=== PATIENT | female | born 1960 | race Caucasian/White ===

== ENCOUNTER 2018-03-09 09:35 | Emergency (ER) | payer BC ==
[~2018-03-09] VITALS: Ht 157.5 cm; Wt 83.2 kg
[~2018-03-09 09:35] MED LIST: PRILOSEC20 MG PO
[2018-03-09 10:11] LABS: HEMOGLOBIN 14.1 G/DL (11.9-15.5); MCH 31.5 PG (29.0-34.0); MCHC 34.4 G/DL (30.0-36.0); MCV 91.5 FL (83-99); PLATELET COUNT 293 K/uL (156-360); RBC DIS.WIDTH-CV 13.8 % (11.8-14.6); RBC DIS.WIDTH-SD 46.5 % (39-53); RED BLOOD COUNT 4.48 M/uL (3.80-5.20); WHITE BLOOD COUNT 11.2 K/uL (4.1-10.2)
[2018-03-09 10:18] LABS: APPEARANCE SL.HAZY ((CLEAR)); BILIRUBIN SMALL; BLOOD NEGATIVE; COLOR AMBER ((YELLOW)); GLUCOSE (STRIP) NEGATIVE; KETONES 5; LEUKOCYTES NEGATIVE; NITRITE NEGATIVE; PROTEIN (STRIP) NEGATIVE; SPECIFIC GRAVITY 1.027 (1.000-1.030)
[2018-03-09 10:22] LABS: CHLORIDE 108 mEq/L (99-109); POTASSIUM 4.4 mEq/L (3.7-5.4); SODIUM 141 mEq/L (136-147)
[2018-03-09 10:22] LABS: BACTERIA RARE /HPF; EPITHELIAL CELLS 2+ /HPF; HYALINE CASTS 0-5 /LPF; MUCUS 1+ /LPF; RED BLOOD CELLS 0-5 /HPF (0-5); UCUL ADDED? NO; WHITE BLOOD CELLS 0-5 /HPF (0-5)
[2018-03-09 10:24] LABS: GLUCOSE 102 mg/dL (70-99)
[2018-03-09 10:25] LABS: TOTAL PROTEIN 6.6 g/dL (6.4-8.3)
[2018-03-09 10:26] LABS: TOTAL BILIRUBIN 0.3 mg/dL (0.0-1.0)
[2018-03-09 10:28] LABS: ALKALINE PHOSPHATASE 34 IU/L (3-129); CREATININE 1.2 mg/dL (0.6-1.3); GFR ESTIMATE (CALCULATED) 49 mL/min/
[2018-03-09 10:29] LABS: UREA NITROGEN (BUN) 14 mg/dL (9-23)
[2018-03-09 10:30] LABS: AST (GOT) 14 IU/L (2-34); DIRECT BILIRUBIN 0.2 mg/dL (0.0-0.3)
[2018-03-09 10:31] LABS: ALT (GPT) 15 IU/L (3-49)
[2018-03-09 10:32] LABS: LIPASE 34 U/L (1.0-51.0)
[2018-03-09] MEDS ORDERED: ZOFRAN4 MG PO (11:22)
[2018-03-09 11:43] VITALS: BP 127/73
== END 2018-03-09 11:44 | disposition home or self-care (01) ==
LOC: EME 09:35
PROVIDERS: Emergency Medicine
DX: K52.9 Noninfective gastroenteritis and colitis, unspecified (principal); F17.200 Nicotine dependence, unspecified, uncomplicated
CPT/HCPCS: 74176; 80048; 80076; 81003; 83690; 85027; 99281; 99284; J1885; J2405; J7030